=== PATIENT | male | born 1980 | race Hispanic/Latino ===

== ENCOUNTER 2024-07-16 20:45 | Inpatient (IN) | payer OTHER ==
[~2024-07-16] VITALS: Ht 170.2 cm; Wt 89.8 kg
[2024-07-16 21:04] LABS: BASOPHILS # (AUTO) 0.07 K/uL (0.00-0.20); BASOPHILS % (AUTO) 0.8 % (0.0-5.0); EOSINOPHILS # (AUTO) 0.02 K/uL (0.00-0.70); EOSINOPHILS % (AUTO) 0.2 % (0.0-8.0); HEMATOCRIT 48.2 % (42-54); IMMATURE GRANULOCYTE ABSOLUTE 0.09 K/uL (0-1); LYMPHOCYTES % (AUTO) 11.3 % (21.0-51.0); MEAN CORPUSCULAR HEMOGLOBIN 32.1 pg (27.0-33.0); MEAN CORPUSCULAR HGB CONC 34.4 g/dL (32.0-36.0); MEAN CORPUSCULAR VOLUME 93.2 fL (79-99); MONOCYTES # (AUTO) 0.6 K/uL (0.1-1.0); MONOCYTES % (AUTO) 6.7 % (3.0-13.0); NEUTROPHILS # (AUTO) 6.8 K/uL (1.8-7.7); NEUTROPHILS % (AUTO) 79.9 % (40.0-77.0); PLATELET COUNT (AUTO) 262 K/uL (130-400); RED BLOOD CELL COUNT(AUTO) 5.17 MIL/uL (4.50-6.20); RED CELL DISTRIBUTION WIDTH 12.7 % (11.0-15.5); WHITE BLOOD COUNT (AUTO) 8.5 K/uL (4.8-10.8)
[2024-07-16 21:15] LABS: CREATININE 1.2 mg/dL (0.5-1.3); POTASSIUM 4.1 mmol/L (3.5-5.1)
[2024-07-16] MEDS: ONDANSETRON 4MG INJ IVP ONE (21:15)
[2024-07-16] MEDS: 0.9%NACL 1000ML 1,000 ML IV ONE (21:15)
[2024-07-16] MEDS: DICYCLOMINE HCL 20 MG TAB PO STA (21:16)
[2024-07-16 21:20] LABS: ALBUMIN 4.5 g/dL (3.5-5.0); BILIRUBIN,TOTAL 0.8 mg/dL (0.2-1.0); TOTAL PROTEIN, SERUM 9.6 g/dL (6.0-8.3)
[2024-07-16 21:48] LABS: ABG OXYGEN SATURATION 84.3 % (95.0-99.0); BASE EXCESS,VENOUS BLOOD GAS -20.2 (-2.0-3.0); HCO3,VENOUS BLOOD GAS 6.9 (21.0-28.0); PCO2,VENOUS BLOOD GAS 21 (32-45); PH,VENOUS BLOOD GAS 7.134 (7.350-7.450); PO2,VENOUS BLOOD GAS 49.4 mmHg (35.0-45.0); VENT MODE, BG RA (ROOM AIR)
[2024-07-16 21:50] LABS: ADD UA MICROSCOPIC YES; APPEARANCE,URINE CLEAR (CLEAR); BILIRUBIN,URINE NEGATIVE (NEGATIVE); COLOR,URINE LIGHT-YELLOW (YELLOW); GLUCOSE, URINE (UA) >=1000 mg/dL (NEGATIVE); KETONES,URINE 150 mg/dL (NEGATIVE); LEUKOCYTE ESTERASE ,URINE NEGATIVE Leu/uL (NEGATIVE); NITRATE,URINE NEGATIVE (NEGATIVE); OCCULT BLOOD,URINE SMALL (NEGATIVE); PH,URINE 5.5 (5.0-8.0); PROTEIN,URINE 100 mg/dL (NEGATIVE); UROBILINOGEN,URINE 0.2 mg/dL (0.2-1.0)
[2024-07-16 21:52] LABS: MUCUS,URINE RARE LPF (None Seen); RBC,URINE 0-1 /HPF (0-1); SQUAMOUS EPITHELIAL CELL,UR RARE /HPF (0-2); WBC,URINE 0-1 /HPF (0-1)
[2024-07-16 21:53] LABS: AMPHET/METH SCREEN,URINE NEGATIVE (NEGATIVE); BARBITURATE SCREEN, URINE NEGATIVE (NEGATIVE); BENZODIAZEPINES SCREEN,URINE NEGATIVE (NEGATIVE); CANNABINOID SCREEN,URINE NEGATIVE (NEGATIVE); COCAINE SCREEN,URINE NEGATIVE (NEGATIVE); OPIATE SCREEN,URINE NEGATIVE (NEGATIVE); PHENCYCLIDINE SCREEN,URINE NEGATIVE (NEGATIVE)
[2024-07-16] MEDS ORDERED: IOHEXOL-350 75 ML VIAL IV ONE (21:56)
[2024-07-16] MEDS ORDERED: 0.9%NACL 1000ML 1,000 ML IV SCH ×2 (22:00→22:30)
[2024-07-16] MEDS ORDERED: hydrALAZine 20MG/ML VIAL IV PRN (22:30)
[2024-07-16] MEDS ORDERED: HYDROCODONE/ACETAMINOPHEN 5/325 MG TAB PO PRN (22:30)
[2024-07-16] MEDS ORDERED: POTASSIUM CHLORIDE 10MEQ/100ML 100 ML IV PRN (22:30)
[2024-07-16] MEDS ORDERED: DOCUSATE SODIUM 100 MG CAP PO PRN (22:30)
[2024-07-16] MEDS ORDERED: ONDANSETRON 4MG INJ IVP PRN (22:30)
[2024-07-16] MEDS ORDERED: TEMAZEPAM 15 MG CAPSULE PO PRN (22:30)
[2024-07-16] MEDS ORDERED: INSULIN REGULAR, HUMAN 3ML 100 UNIT in 0.9%NACL 100ML 100 ML IV SCH (22:30)
[2024-07-16] MEDS ORDERED: MAGNESIUM 2GM PREMIX 50ML 50 ML IV SCH (22:30)
[2024-07-16] MEDS ORDERED: acetaMINOPHEN 650 MG SUPPOSITORY RC PRN (22:30)
[2024-07-16] MEDS ORDERED: MANNITOL 20% 250ML IV.SOLN IV SCH (22:30)
[2024-07-16] MEDS: KETOROLAC 30MG VIAL (30MG/ML) IVP ONE (22:55)
[2024-07-16] MEDS: PANTOPRAZOLE 40 MG/VIAL IVP SCH (22:55)
[2024-07-16] MEDS: PROMETHAZINE HCL 25 MG/ML 1ML AMPULE IM ONE (22:55)
[2024-07-16] MEDS: INSULIN REGULAR, HUMAN 3ML 100 UNIT in 0.9%NACL 100ML 100 ML IV SCH (23:19)
[2024-07-16] MEDS ORDERED: PROMETHAZINE HCL 25 MG/ML 1ML AMPULE IM PRN (23:30)
[2024-07-16] MEDS ORDERED: 0.9%NACL 100ML 100 ML IV SCH (23:30)
[2024-07-16] MEDS: 0.9%NACL 1000ML 1,000 ML IV SCH (23:36)
[2024-07-16] MEDS: SODIUM BICARB 50MEQ 50ML VIAL IV ONE (23:43)
[2024-07-17] VITALS (42 sets, daily range): BP systolic 110–162; BP diastolic 69–110; PULSE 96–116; RESP 11–27; O2SAT 96–100
[2024-07-17 00:21] LABS: SARS-CoV-2, RNA, NAAT NEGATIVE SARS CoV-2 (NEGATIVE)
[2024-07-17 00:27] LABS: INFLUENZA TYPE A Negative For Type A (NEGATIVE); INFLUENZA TYPE B Negative For Type B (NEGATIVE)
[2024-07-17 01:18] LABS: BASOPHILS # (AUTO) 0.04 K/uL (0.00-0.20); BASOPHILS % (AUTO) 0.6 % (0.0-5.0); EOSINOPHILS # (AUTO) 0.02 K/uL (0.00-0.70); EOSINOPHILS % (AUTO) 0.3 % (0.0-8.0); HEMATOCRIT 41.6 % (42-54); IMMATURE GRANULOCYTE ABSOLUTE 0.07 K/uL (0-1); LYMPHOCYTES # (AUTO) 0.6 K/uL (1.0-4.8); LYMPHOCYTES % (AUTO) 9.8 % (21.0-51.0); MEAN CORPUSCULAR HEMOGLOBIN 32.1 pg (27.0-33.0); MEAN CORPUSCULAR HGB CONC 34.6 g/dL (32.0-36.0); MEAN CORPUSCULAR VOLUME 92.7 fL (79-99); MONOCYTES # (AUTO) 0.4 K/uL (0.1-1.0); MONOCYTES % (AUTO) 6.3 % (3.0-13.0); NEUTROPHILS # (AUTO) 5.4 K/uL (1.8-7.7); NEUTROPHILS % (AUTO) 81.9 % (40.0-77.0); PLATELET COUNT (AUTO) 195 K/uL (130-400); RED BLOOD CELL COUNT(AUTO) 4.49 MIL/uL (4.50-6.20); RED CELL DISTRIBUTION WIDTH 12.6 % (11.0-15.5); WHITE BLOOD COUNT (AUTO) 6.6 K/uL (4.8-10.8)
[2024-07-17 01:20] LABS: MAGNESIUM 1.7 mg/dL (1.80-2.40); POTASSIUM 4.1 mmol/L (3.5-5.1)
[2024-07-17] MEDS: D5W-1/2 NS/20MEQ KCL 1,000 ML IV SCH ×2 (01:26→19:33)
[2024-07-17] MEDS: MAGNESIUM 2GM PREMIX 50ML 50 ML IV SCH (02:15)
[2024-07-17 05:16] LABS: BASOPHILS # (AUTO) 0.04 K/uL (0.00-0.20); BASOPHILS % (AUTO) 0.6 % (0.0-5.0); EOSINOPHILS # (AUTO) 0.01 K/uL (0.00-0.70); EOSINOPHILS % (AUTO) 0.1 % (0.0-8.0); HEMATOCRIT 40.6 % (42-54); IMMATURE GRANULOCYTE ABSOLUTE 0.05 K/uL (0-1); LYMPHOCYTES # (AUTO) 1.3 K/uL (1.0-4.8); LYMPHOCYTES % (AUTO) 17.6 % (21.0-51.0); MEAN CORPUSCULAR HEMOGLOBIN 31.6 pg (27.0-33.0); MEAN CORPUSCULAR HGB CONC 34.5 g/dL (32.0-36.0); MEAN CORPUSCULAR VOLUME 91.6 fL (79-99); MONOCYTES # (AUTO) 0.9 K/uL (0.1-1.0); MONOCYTES % (AUTO) 12.4 % (3.0-13.0); NEUTROPHILS # (AUTO) 4.9 K/uL (1.8-7.7); NEUTROPHILS % (AUTO) 68.6 % (40.0-77.0); PLATELET COUNT (AUTO) 210 K/uL (130-400); RED BLOOD CELL COUNT(AUTO) 4.43 MIL/uL (4.50-6.20); RED CELL DISTRIBUTION WIDTH 12.6 % (11.0-15.5); WHITE BLOOD COUNT (AUTO) 7.2 K/uL (4.8-10.8)
[2024-07-17 05:40] LABS: MAGNESIUM 2.3 mg/dL (1.80-2.40); PHOSPHORUS 1.3 mg/dL (2.5-4.9); POTASSIUM 3.6 mmol/L (3.5-5.1); THYROID STIMULATING HORMONE 1.04 uIU/mL (0.36-3.74)
[2024-07-17] MEDS ORDERED: INSU100I35 SQ (05:47)
[2024-07-17] MEDS ORDERED: LISI10TA24 PO (05:47)
[2024-07-17] MEDS: POTASSIUM CHLORIDE 10MEQ/100ML 100 ML IV PRN (06:13)
[2024-07-17] MEDS ORDERED: POTASSIUM PHOS 15 mMOL+NS250ML 250 ML IV PRN (07:00)
[2024-07-17] MEDS: INSULIN GLARGINE 100 UNITS/ML 10 ML VIAL SQ SCH ×2 (07:08→20:12)
[2024-07-17 07:39] LABS: ABG BASE EXCESS -13.9 mmol/L (-2.0-3.0); ABG HCO3 10.7 mmol/L (21.0-28.0); ABG OXYGEN SATURATION 96.4 % (95.0-99.0); ABG PCO2 23 mmHg (35-48); PO2, ARTERIAL BG 93.3 mmHg (83.0-108.0); VENT MODE, BG RA (ROOM AIR)
[2024-07-17] MEDS: ENOXAPARIN SODIUM 40 MG/0.4 ML SYRINGE SQ SCH (08:14)
[2024-07-17] MEDS: CEFTRIAXONE 2GM VIAL IVPB SCH (10:23)
[2024-07-17 11:17] LABS: CREATININE 0.9 mg/dL (0.5-1.3)
[2024-07-17 11:18] LABS: POTASSIUM 2.8 mmol/L (3.5-5.1)
[2024-07-17] MEDS: KCL 20 MEQ ERTAB PO PRN (13:32)
[2024-07-17] MEDS: POTASSIUM CHLORIDE 10% ELIXIR 20 MEQ/15 ML UDCUP PO PRN (13:33)
[2024-07-17] MEDS ORDERED: VASOPRESSIN 40 UNITS in 0.9%NACL 50ML 40 ML IV STA (14:25)
[2024-07-17 15:03] LABS: POTASSIUM 3.9 mmol/L (3.5-5.1)
[2024-07-17 17:52] LABS: CREATININE 0.9 mg/dL (0.5-1.3); POTASSIUM 3.8 mmol/L (3.5-5.1)
[2024-07-17] MEDS ORDERED: PHARMACY COMMUNICATION MISC SCH (20:00)
[2024-07-17 22:37] LABS: CREATININE 1.1 mg/dL (0.5-1.3); POTASSIUM 3.5 mmol/L (3.5-5.1)
[2024-07-18] VITALS (22 sets, daily range): BP systolic 99–136; BP diastolic 61–112; PULSE 83–108; RESP 13–23; O2SAT 96–97
[2024-07-18 02:23] LABS: BASOPHILS # (AUTO) 0.04 K/uL (0.00-0.20); BASOPHILS % (AUTO) 0.9 % (0.0-5.0); EOSINOPHILS # (AUTO) 0.09 K/uL (0.00-0.70); EOSINOPHILS % (AUTO) 1.9 % (0.0-8.0); HEMATOCRIT 39.6 % (42-54); IMMATURE GRANULOCYTE ABSOLUTE 0.01 K/uL (0-1); LYMPHOCYTES # (AUTO) 1.4 K/uL (1.0-4.8); LYMPHOCYTES % (AUTO) 28.7 % (21.0-51.0); MEAN CORPUSCULAR HEMOGLOBIN 31.7 pg (27.0-33.0); MEAN CORPUSCULAR HGB CONC 35.4 g/dL (32.0-36.0); MEAN CORPUSCULAR VOLUME 89.6 fL (79-99); MONOCYTES # (AUTO) 0.4 K/uL (0.1-1.0); MONOCYTES % (AUTO) 9.4 % (3.0-13.0); NEUTROPHILS # (AUTO) 2.8 K/uL (1.8-7.7); NEUTROPHILS % (AUTO) 58.9 % (40.0-77.0); PLATELET COUNT (AUTO) 190 K/uL (130-400); RED BLOOD CELL COUNT(AUTO) 4.42 MIL/uL (4.50-6.20); RED CELL DISTRIBUTION WIDTH 12.6 % (11.0-15.5); WHITE BLOOD COUNT (AUTO) 4.7 K/uL (4.8-10.8)
[2024-07-18 02:35] LABS: ALBUMIN 3.1 g/dL (3.5-5.0); BILIRUBIN,TOTAL 0.7 mg/dL (0.2-1.0); CREATININE 0.9 mg/dL (0.5-1.3); MAGNESIUM 1.6 mg/dL (1.80-2.40); PHOSPHORUS 1.1 mg/dL (2.5-4.9); POTASSIUM 3.7 mmol/L (3.5-5.1); TOTAL PROTEIN, SERUM 6.7 g/dL (6.0-8.3)
[2024-07-18 02:48] LABS: HEMOGLOBIN A1C 10.1 % (4.0-6.0)
[2024-07-18] MEDS ORDERED: PHARMACY COMMUNICATION MISC SCH (03:00)
[2024-07-18 06:48] LABS: CREATININE 0.9 mg/dL (0.5-1.3); POTASSIUM 3.9 mmol/L (3.5-5.1)
[2024-07-18] MEDS: NS IV PRN (09:06)
[2024-07-18] MEDS: SOD PHOSPHATE IV PRN (09:06)
[2024-07-18] MEDS: INSULIN HUMULIN R 100 UNIT/ML 3ML SQ SCH (09:09)
[2024-07-18] MEDS ORDERED: INSULIN HUMULIN R 100 UNIT/ML 3ML SQ SCH (11:30)
[2024-07-18] MEDS: KETOROLAC 30MG VIAL (30MG/ML) IM PRN (16:58)
[2024-07-19] VITALS: BP 134/98; PULSE 100; RESP 20
[2024-07-19] MEDS: acetaMINOPHEN 325 MG TAB PO PRN (02:26)
[2024-07-19 04:00] VITALS: BP 118/83; PULSE 83; RESP 20
[2024-07-19 05:46] LABS: BASOPHILS # (AUTO) 0.05 K/uL (0.00-0.20); EOSINOPHILS # (AUTO) 0.11 K/uL (0.00-0.70); EOSINOPHILS % (AUTO) 2.1 % (0.0-8.0); HEMATOCRIT 39.8 % (42-54); IMMATURE GRANULOCYTE ABSOLUTE 0.03 K/uL (0-1); LYMPHOCYTES # (AUTO) 1.8 K/uL (1.0-4.8); MEAN CORPUSCULAR HEMOGLOBIN 32.2 pg (27.0-33.0); MEAN CORPUSCULAR HGB CONC 35.9 g/dL (32.0-36.0); MEAN CORPUSCULAR VOLUME 89.6 fL (79-99); MONOCYTES % (AUTO) 18.8 % (3.0-13.0); NEUTROPHILS # (AUTO) 2.3 K/uL (1.8-7.7); NEUTROPHILS % (AUTO) 43.5 % (40.0-77.0); PLATELET COUNT (AUTO) 183 K/uL (130-400); RED BLOOD CELL COUNT(AUTO) 4.44 MIL/uL (4.50-6.20); RED CELL DISTRIBUTION WIDTH 12.5 % (11.0-15.5); WHITE BLOOD COUNT (AUTO) 5.3 K/uL (4.8-10.8)
[2024-07-19 06:25] LABS: ALBUMIN 3.1 g/dL (3.5-5.0); BILIRUBIN,TOTAL 0.7 mg/dL (0.2-1.0); CREATININE 0.9 mg/dL (0.5-1.3); POTASSIUM 3.1 mmol/L (3.5-5.1); TOTAL PROTEIN, SERUM 6.9 g/dL (6.0-8.3)
[2024-07-19] MEDS: LACTULOSE 20 GM/30 ML UDCUP PO PRN (06:58)
[2024-07-19 08:00] VITALS: BP 131/94; PULSE 83; RESP 16
[2024-07-19 09:00] VITALS: O2SAT 96
[2024-07-19 12:00] VITALS: BP 146/104; PULSE 91; RESP 16
[2024-07-19] MEDS ORDERED: INSU100I35 SQ (15:09)
== END 2024-07-19 16:05 | disposition home or self-care (01) | DRG 871 ==
LOC: EDH 20:45 → EDHIP 21:58 → 2BH 07-17 02:23 → 4DH 07-18 19:45
PROVIDERS: ADMIT Internal Medicine; ATTEND Internal Medicine
DX: A41.9 Sepsis, unspecified organism (principal); E10.10 Type 1 diabetes mellitus with ketoacidosis without coma; E87.1 Hypo-osmolality and hyponatremia; N17.9 Acute kidney failure, unspecified; I10 Essential (primary) hypertension; Z20.822 Contact with and (suspected) exposure to COVID-19; E78.00 Pure hypercholesterolemia, unspecified; E86.0 Dehydration; E87.8 Other disorders of electrolyte and fluid balance, not elsewhere classified; Z68.31 Body mass index [BMI] 31.0-31.9, adult; E66.9 Obesity, unspecified; K59.00 Constipation, unspecified; K76.0 Fatty (change of) liver, not elsewhere classified; E10.65 Type 1 diabetes mellitus with hyperglycemia; Z79.4 Long term (current) use of insulin; Z79.899 Other long term (current) drug therapy
CPT/HCPCS: 36415; 36600; 74177; 76705; 80048; 80053; 80305; 81001; 82010; 82435; 82803; 82947; 82948; 83036; 83605; 83690; 83735; 84100; 84132; 84295; 84443; 85025; 87635; 87804; G0378; J0696; J1650; J1815; J1885; J2405; J2470; J2550; J3475; J3480; J3490; J7030; Q9967